=== PATIENT | female | born 1990 | race American Indian/Alaskan Native ===

== ENCOUNTER 2019-08-27 00:19 | Outpatient (CLI) | payer MEDICAID ==
[2019-08-27] MEDS ORDERED: LACTATED RINGERS 1,000 ML IV ONE (00:39)
[2019-08-27 01:14] LABS: Bilirubin,Urine NEG (Negative); Blood,Urine NEG (Negative); Color,Urine Colorless (Yellow); Protein,Urine <15 mg/dL mg/dL (Negative); Urobilinogen,Urine < 2.0 mg/dL (<2.0)
[2019-08-27 01:21] LABS: Amphetamine Screen,Urine PRESUMPTIVE NEGATIVE; Benzodiazepines Screen,Urine PRESUMPTIVE NEGATIVE; Methadone Screen,Urine PRESUMPTIVE NEGATIVE; Opiate Screen,Urine PRESUMPTIVE NEGATIVE
[2019-08-27 01:38] LABS: Cannabinoid Screen,Urine PRESUMPTIVE POSITIVE; Cocaine Screen,Urine PRESUMPTIVE POSITIVE
--- NOTE | 2019-08-27 03:51 | Ultrasound Report ---
ULTRASOUND OBSTETRIC INDICATION / CLINICAL INFORMATION: well being and rule out rupture of membranes. Clinical Gestational Age (GA): 25 weeks 2 days TECHNIQUE: Transabdominal. COMPARISON: None available. FINDINGS: There is a single intrauterine . Biparietal Diameter = 5.5 cm = 22weeks, 6 day(s). Head Circumference = 21.1 cm = 23 weeks, 1 day(s). Abdominal Circumference = 20.7 cm = 25 weeks, 2 day(s). Femur Length = 4.3 cm = 24 weeks, 0 day(s). Average Ultrasound Age (AUA) = 23 weeks, 6 day(s). Heart Rate: 145 beats per minute. Estimated Weight in grams (if calculated): 701 g Position: cephalic. Cervix: closed. Length in cm (if measured): 4.6 cm Placenta: Fundal and free of the os. Amniotic Fluid Volume: normal Amniotic Fluid Index (BALAJI) in cm (if calculated): 14.8 cm. Maternal Adnexa: No significant abnormality. Incidental finding of a benign cystic oval mass within the upper vaginal canal measuring 2.4 x 1.1 cm IMPRESSION: 1. Single, living intrauterine with estimated sonographic age of 23 weeks, 6 day(s). 2. No significant sonographic abnormality. 3. Benign cystic mass within the vaginal canal. Signer Name: Sumaya Dao MD Signed: 08/27/2019 3:47 AM Workstation Name: [id number]
== END 2019-08-27 04:07 | disposition home or self-care (01) ==
LOC: TRG 00:19 → LD 00:21 → TRG 04:07
PROVIDERS: ATTEND Obstetrics & Gynecology
DX: O99.89 Other specified diseases and conditions complicating pregnancy, childbirth and the puerperium (principal); N89.8 Other specified noninflammatory disorders of vagina; Z3A.25 25 weeks gestation of pregnancy
CPT/HCPCS: 76816; 80307; 81001

== ENCOUNTER 2022-02-03 17:09 | Emergency (ER) | payer MEDICAID ==
[2022-02-03] MEDS ORDERED: DOPamine 800 MG/D5W 250ML 800 MG/250 ML BAG IV ONE (17:13)
--- NOTE | 2022-02-03 17:24 | Emergency Department Report ---
HPI - General Time Seen by Provider: 02/03/22 17:12 - HPI HPI: Room 22 The patient is a 31-year-old female brought in with cardiac arrest. The patient was found hanging in her closet by an electrical cord by family. Family took the patient down and called 911. EMS arrived on scene at 1611 to find the patient in asystole. ACLS protocols were initiated and patient was intubated using a Marco airway. EMS administered 5 rounds of epinephrine and 2 mg of Narcan prior to arrival. EMS states the patient's rhythm changed to PEA at 1 time but she never had a pulse. In the ED the Marco airway was removed and the patient was intubated by myself using a 7.0 ET tube and the glide scope. ACLS protocols were continued. We were able to obtain ROSC transiently but the patient arrested again and was unresponsive to further therapies. ED Past Medical Hx - Past Medical History Hx Seizures: Yes (2 yrs no meds) Hx Asthma: Yes (inhaler used 2 wks) - Surgical History Past Surgical History?: No - Family History Family history: no significant - Social History Smoking Status: Unknown if ever smoked - Medications Home Medications: Home Medications Medication Instructions Recorded Confirmed Last Taken Type Folic Acid 1 mg PO QDAY 08/27/19 08/27/19 08/26/19 10:00 History Pnv-Stud Driver-U Capsule 1 tab PO QDAY 08/27/19 08/27/19 08/26/19 10:00 History ED Review of Systems ROS: Stated complaint: POSSIBLE OD Other details as noted in HPI Comment: Unobtainable due to pts medical conditions Physical Exam - Physical Exam Physical Exam: GENERAL: The patient is well-developed well-nourished female lying on stretcher being bagged via Marco airway and receiving chest compressions from EMS. [] HEENT: Normocephalic. Atraumatic. Disconjugate gaze. NECK: Supple. Trachea midline, ligature dong present to the left side of the neck CHEST/LUNGS: No spontaneous respirations. Breath sounds equal bilaterally after intubation by myself HEART/CARDIOVASCULAR: No heart sounds. Asystole on the monitor ABDOMEN: Abdomen is soft, nontender. There is no abdominal distention. SKIN: There is no rash. There is no edema. There is no diaphoresis. NEURO: GCS 3 T MUSCULOSKELETAL:There is no evidence of acute injury. - Intubation Time Out Performed: No Sedative: none Laryngoscope: fiberoptic video scope Size: 3 Assist Device Used: fiberoptic device ET Tube Size: 7 Tube Secured Depth (cm): 21 Tube Secured Location: lips Tube Placement Confirmation: visualized tube passing t, equal breath sounds bilat, no breath sounds over epi, confirmation by capnometr Patient Tolerated Procedure: no complications Intubation Complications: none ED Medical Decision Making - Differential Diagnosis Pending Critical care attestation.: If time is entered above; I have spent that time in minutes in the direct care of this critically ill patient, excluding procedure time. ED Disposition Clinical Impression: Cardiac arrest, Hanging Disposition: 20 Is pt being admited?: No Does the pt Need Aspirin: No Condition: Poor Time of Disposition: 17:26
--- NOTE | 2022-02-07 12:38 | Electrocardiograph Report ---
[facility] Test Date: 2022-02-03 Test Time: 17:08:57 Pat Name: NIEVES MESA Department: Room: Gender: F Property Accountant: nurse : 1990 Requested By: MANDI ROD Order Number: [id number] Reading MD: Shola Gomez Measurements Intervals [place] Rate: 66 P: 0 NE: QRS: 186 QRSD: 168 T: 99 QT: QTc: 0 Interpretive Statements not enough leads could be measured No previous ECG available for comparison low voltage RBBB diffuse st and t changes junctional rythm Electronically Signed On 02-07-2022 9:38:44 PDT by Shola Gomez
== END 2022-02-04 04:02 ==
LOC: ED 17:09
DX: I46.9 Cardiac arrest, cause unspecified (principal); T71.161A Asphyxiation due to hanging, accidental, initial encounter; R56.9 Unspecified convulsions; J45.909 Unspecified asthma, uncomplicated; X58.XXXA Exposure to other specified factors, initial encounter; Y93.89 Activity, other specified; Y92.89 Other specified places as the place of occurrence of the external cause; Y99.8 Other external cause status
CPT/HCPCS: 31500; 92950; 93005; 96374; 99285